=== PATIENT | male | born 1990 | race African-American/Black ===

== ENCOUNTER 2017-07-13 14:50 | Emergency (ER) | payer OTHER ==
[2017-07-13 15:01] VITALS: BP 129/72
[2017-07-13] MEDS ORDERED: Ibuprofen TAB* 400 MG PO ONE (15:33)
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
== END 2017-07-13 16:17 | disposition home or self-care (01) ==
LOC: ED 14:50
DX: S02.2XXA Fracture of nasal bones, initial encounter for closed fracture (principal); Y09 Assault by unspecified means; Y92.149 Unspecified place in prison as the place of occurrence of the external cause; F17.210 Nicotine dependence, cigarettes, uncomplicated; R04.0 Epistaxis
CPT/HCPCS: 99281